=== PATIENT | female | born 1945 | race Caucasian/White ===

== ENCOUNTER 2016-07-15 08:56 | Outpatient (CLI) | payer OTHER ==
[2016-07-15] MEDS ORDERED: diphenhydrAMINE 25 MG CAP PO ONE (09:15)
[2016-07-15] MEDS ORDERED: ACETAMINOPHEN 325 MG TAB PO ONE (09:15)
[2016-07-15 15:49] VITALS: BP 103/67; PULSE 118; RESP 20; TEMP 99; O2SAT 95
== END 2016-07-15 15:49 | disposition home or self-care (01) ==
LOC: FOBOP 08:56 → EDSTATUS 11:00 → FOBOP 15:49
PROVIDERS: ATTEND Internal Medicine Hematology & Oncology
PROC: 30233N1 Transfusion of Nonautologous Red Blood Cells into Peripheral Vein, Percutaneous Approach (ICD-10-PCS; principal; 2016-07-15)
DX: C50.919 Malignant neoplasm of unspecified site of unspecified female breast (principal)
CPT/HCPCS: 36430; P9016